=== PATIENT | female | born 1960 | race African-American/Black ===

== ENCOUNTER 2021-01-25 18:17 | Emergency (ER) | payer OTHER ==
[~2021-01-25] VITALS: Ht 147.3 cm; Wt 56.2 kg
[2021-01-25 18:30] VITALS: BP 152/63
--- NOTE | 2021-01-25 19:10 | NUR ---
TO ER BED 5
[2021-01-25] MEDS ORDERED: IBUP-2218 PO (20:25)
== END 2021-01-25 20:41 | disposition home or self-care (01) ==
LOC: MED 18:17
DX: S76.911A Strain of unspecified muscles, fascia and tendons at thigh level, right thigh, initial encounter (principal); X58.XXXA Exposure to other specified factors, initial encounter; Y93.89 Activity, other specified; Y92.89 Other specified places as the place of occurrence of the external cause; Y99.8 Other external cause status
CPT/HCPCS: 93971; 99284